=== PATIENT | male | born 2000 | race African-American/Black ===

== ENCOUNTER 2024-02-29 19:03 | Emergency (ER) | payer SELFPAY ==
[~2024-02-29] VITALS: Ht 177.8 cm; Wt 95.0 kg
[2024-02-29 19:12] VITALS: TEMP 97.8; O2SAT 98
[2024-02-29] MEDS ORDERED: LEVETIRACETAM 500MG PREMIX 100 ML IV ONE (20:00)
[2024-02-29] MEDS: LEVETIRACETAM 500MG PREMIX 100 ML IV NR (23:18)
[2024-03-01 00:01] LABS: BASOPHILS % 0.4 % (0.0-2.0); EOSINOPHILS % 0.3 % (0.0-5.0); HEMATOCRIT. 44.8 % (42.0-52.0); HEMOGLOBIN. 14.7 g/dL (14.0-18.0); LYMPHOCYTES % 10.1 % (20.0-50.0); MEAN CORPUSCULAR HEMOGLOBIN 29.6 pg (28.0-32.0); MEAN CORPUSCULAR HGB CONC 32.7 g/dL (31.0-37.0); MEAN CORPUSCULAR VOLUME 90.5 fL (80.0-94.0); MEAN PLATELET VOLUME 11.2 fl (7.4-10.4); MONOCYTES % 6.7 % (2.0-8.0); NEUTROPHILS % 82.5 % (40.0-76.0); PLATELET 122 x1000/uL (130-400); RED BLOOD CELL COUNT 4.95 mill/uL (4.7-6.1); RED CELL DISTRIBUTION WIDTH 14.1 % (11.6-14.6); WHITE BLOOD COUNT 9.7 x1000/uL (4.5-11.0)
[2024-03-01 00:07] LABS: CHLORIDE 104 mEq/L (98-107); POTASSIUM 3.7 mEq/L (3.5-5.1); SODIUM 138 mEq/L (136-145)
[2024-03-01 00:08] LABS: CARBON DIOXIDE 24 mEq/L (21-32)
[2024-03-01 00:09] LABS: CALCIUM 9.6 mg/dL (8.7-10.4)
[2024-03-01 00:13] LABS: CREATININE 1.1 mg/dL (0.6-1.3); GLUCOSE 97 mg/dL (70-105); UREA NITROGEN BLOOD 9 mg/dL (9-23)
[2024-03-01 00:15] LABS: ALANINE AMINOTRANSFERASE 51 IU/L (10-49); ASPARTATE AMINOTRANSFERASE 36 IU/L (<34)
[2024-03-01 00:16] LABS: BILIRUBIN TOTAL 0.5 mg/dL (0.1-1.0); PROTEIN TOTAL 7.2 g/dL (6.0-8.3)
[2024-03-01 00:33] VITALS: BP 122/71; PULSE 82; RESP 22
== END 2024-03-01 00:35 | disposition home or self-care (01) ==
LOC: ER 19:03
DX: R56.9 Unspecified convulsions (principal)
CPT/HCPCS: 99285; 96365; 70450; 80053; 82962; 85025; 36415; 93005; J1953